=== PATIENT | female | born 1995 | race Caucasian/White ===

== ENCOUNTER → 2021-01-06 15:33 | Outpatient (CLI) | payer OTHER, SELFPAY ==
[2021-01-06 17:17] LABS: HCG,Quantitative 5608 mIU/ml (0-5.42)
== END ==
PROVIDERS: Visit Provider Obstetrics & Gynecology
DX: Z34.90 Encounter for supervision of normal pregnancy, unspecified, unspecified trimester (principal)
CPT/HCPCS: 36415; 84702

== ENCOUNTER → 2021-01-08 10:53 | Outpatient (CLI) | payer OTHER, SELFPAY ==
[2021-01-08 12:02] LABS: HCG,Quantitative 8715 mIU/ml (0-5.42)
== END ==
PROVIDERS: Visit Provider Obstetrics & Gynecology
DX: Z34.90 Encounter for supervision of normal pregnancy, unspecified, unspecified trimester (principal)
CPT/HCPCS: 36415; 84702

== ENCOUNTER → 2021-01-20 15:03 | Outpatient (CLI) | payer OTHER, SELFPAY ==
--- NOTE | 2021-01-20 15:03 | US_ITS ---
PROCEDURE: US OB <= 14 WEEKS FETUS CLINICAL INDICATION: Dates Early Ob ultrasound COMPARISON: No exams were available for comparison FINDINGS: An intrauterine gestational sac is present with a pole with a crown-rump length of 1.74cm correlating to gestational age of 8weeks 2days. heart tones are present with an FHR of 165bpm. Yolk sac is noted. 2 cm right ovarian cyst IMPRESSION: Live IUP at 8 weeks 2 days Estimated due date by Ultrasound is 08/30/2021 Dictated by: Krishna Carcamo MD 01/20/2021 16:42 Krishna Carcamo MD in [facility] 01/20/2021 16:42
== END ==
PROVIDERS: PCP Internal Medicine Adolescent Medicine; Visit Provider Obstetrics & Gynecology
DX: Z34.90 Encounter for supervision of normal pregnancy, unspecified, unspecified trimester (principal)
CPT/HCPCS: 76801

== ENCOUNTER → 2021-01-28 15:31 | Outpatient (CLI) | payer OTHER, SELFPAY ==
[2021-01-28 16:05] LABS: Basophils % 0.4 % (0.1-2.0); Eosinophils # 0.2 K/mm3 (0.0-0.4); Eosinophils % 1.9 % (0.1-12.0); Hematocrit 36.8 % (37.0-47.0); Hemoglobin 12.4 g/dL (12.2-16.2); Lymphocytes % 18.8 % (10-50); Mean Corpuscular HGB Conc 33.8 g/dL (31.8-35.4); Mean Corpuscular Hemoglobin 29.1 pg (27.0-31.2); Mean Platelet Volume 7.4 fl (7.4-10.4); Monocytes # 0.5 K/mm3 (0.1-1.0); Neutrophils # 7.9 K/mm3 (1.8-7.8); Platelet Count 278 K/mm3 (142-424); Red Blood Count 4.28 M/mm3 (4.20-5.40); Red Cell Distribution Width 13.6 % (11.5-17.5); White Blood Count 10.7 K/mm3 (4.8-10.8)
[2021-01-30 12:51] LABS: HIV Screen 4th Generation wRfx Non Reactive (Non Reactive); Hepatitis B Surface Antigen Negative (Negative); Hepatitis C Antibody <0.1 s/co ratio (0.0-0.9); Rapid Plasma Reagin Ab Titer Non Reactive (NonRea<1:1); Rubella Antibodies, IgG 2.57 index (Immune >0.99)
== END ==
PROVIDERS: Visit Provider Obstetrics & Gynecology
DX: Z34.90 Encounter for supervision of normal pregnancy, unspecified, unspecified trimester (principal)
CPT/HCPCS: 36415; 85025; 86592; 86703; 86762; 86850; 87340; 87380; G0432

== ENCOUNTER → 2021-04-22 14:47 | Outpatient (CLI) | payer BC, SELFPAY ==
--- NOTE | 2021-04-22 14:47 | US_ITS ---
PROCEDURE: US OB >= 14 WEEKS FETUS CLINICAL INDICATION: OB complete Anatomy exam COMPARISON: US US OB <= 14 WEEKS FETUS from 01/20/2021 FINDINGS: There is a single live fetus which is in cephalic presentation. The cervix is closed measuring 4 cm. The placenta posterior and grade 1 Complete survey performed and was unremarkable on the submitted images as in PACS. No discrete anomalies identified on survey imaging by technologist. Active fetus. Three-vessel cord with satisfactory umbilical cord insertion. 4- chamber heart noted. Survey of brain & ventricles Unremarkable. Face and neck survey unremarkable. Diaphragm and chest views unremarkable. Abdomen: Both kidneys noted and unremarkable. Stomach noted and satisfactory. Spine: Survey of the spine satisfactory with no anomalies identified nor imaged. Both arms and legs noted. Amniotic Fluid: Adequate. Maternal adnexa: No significant findings. Measurements: Average ultrasound age 21weeks 3days. Gestational Age 21weeks 3days Estimated due date by ultrasound age 1208/30/2021. Estimated weight 439g BPD = 21weeks 3days OFD = 21weeks HC = 20weeks 3days AC = 21weeks 4days FL = 22weeks 2days Growth Percentile= 55% Heart Rate = 150bpm Cerebellum = 19weeks 6days Humerus = 22weeks 4days HC/AC is 1.09 CI is 0.81 FL/BPD is 0.75 FL/AC is 0.23 IMPRESSION: Live IUP in cephalic presentation with an average ultrasound age 21 weeks and 3 days. No obvious anomalies. Please see above for detail Dictated by: Krishna Carcamo MD 04/22/2021 17:28 Krishna Carcamo MD in [facility] 04/22/2021 17:28
== END ==
PROVIDERS: PCP Internal Medicine Adolescent Medicine; Visit Provider Obstetrics & Gynecology
DX: Z34.90 Encounter for supervision of normal pregnancy, unspecified, unspecified trimester (principal)
CPT/HCPCS: 76805

== ENCOUNTER → 2021-05-12 09:06 | Outpatient (CLI) | payer BC, SELFPAY ==
[2021-05-12 09:36] LABS: Glucose,Fasting 91 mg/dl (74-100)
[2021-05-12 09:46] LABS: Basophils # 0.1 K/mm3 (0-0.2); Basophils % 0.5 % (0.1-2.0); Eosinophils # 0.4 K/mm3 (0.0-0.4); Hematocrit 37.7 % (37.0-47.0); Hemoglobin 12.8 g/dL (12.2-16.2); Lymphocytes # 1.9 K/mm3 (0.7-4.5); Lymphocytes % 13.3 % (10-50); Mean Corpuscular HGB Conc 34.1 g/dL (31.8-35.4); Mean Corpuscular Hemoglobin 29.1 pg (27.0-31.2); Mean Corpuscular Volume 85.4 fl (81-99); Mean Platelet Volume 7.3 fl (7.4-10.4); Monocytes # 0.5 K/mm3 (0.1-1.0); Monocytes % 3.8 % (1.7-9.3); Neutrophils # 11.2 K/mm3 (1.8-7.8); Neutrophils % 79.4 % (37.0-80.0); Platelet Count 312 K/mm3 (142-424); Red Blood Count 4.41 M/mm3 (4.20-5.40); Red Cell Distribution Width 14.6 % (11.5-17.5); White Blood Count 14.2 K/mm3 (4.8-10.8)
[2021-05-12 11:45] LABS: Glucose 1 Hour 131 mg/dL (74-100)
== END ==
PROVIDERS: Visit Provider Obstetrics & Gynecology
DX: Z34.90 Encounter for supervision of normal pregnancy, unspecified, unspecified trimester (principal)
CPT/HCPCS: 36415; 82951; 85025

== ENCOUNTER → 2021-07-10 09:57 | Outpatient (CLI) | payer BC, SELFPAY ==
--- NOTE | 2021-07-10 09:58 | US_ITS ---
PROCEDURE: US OB FOLLOW UP CLINICAL INDICATION: growth and DAYANARA FINDINGS: The following parameters are obtained: Average ultrasound age is Average 31weeks 5days Estimated due date by ultrasound is 09/06/2021. Estimated weight is 1,934g. This is 27th percentile. Cervix is closed and measures 3 cm. There is breech presentation. The placenta is right lateral and grade 2. BPD: 29weeks 5days OFD: 31 weeks 5 days HC: 30weeks 5days AC: 32weeks 3days FL: 33weeks 4days heart rate: 160bpm bpm. HC/AC: 0.99 Cephalic index: 0.72 FL/BPD: 0.88 FL/AC: 0.23 Amniotic fluid index: 13.35cm The femur length is 33weeks 4days IMPRESSION: There is a single live fetus present in breech presentation. Average ultrasound age 31 weeks 5 days with an estimated weight 1934 g which is 27th percentile. DAYANARA is normal at 13 cm. Dictated by: Krishna Carcamo MD 07/10/2021 15:50 Krishna Carcamo MD in [facility] 07/10/2021 15:50
== END ==
PROVIDERS: PCP Internal Medicine Adolescent Medicine; Visit Provider Obstetrics & Gynecology
DX: O36.5990 Maternal care for other known or suspected poor fetal growth, unspecified trimester, not applicable or unspecified (principal); Z3A.32 32 weeks gestation of pregnancy
CPT/HCPCS: 76816

== ENCOUNTER → 2021-08-04 16:56 | Outpatient (CLI) | payer BC, SELFPAY | PROVIDERS: Visit Provider Obstetrics & Gynecology | DX: Z34.90 Encounter for supervision of normal pregnancy, unspecified, unspecified trimester (principal) | CPT/HCPCS: 86403 ==

== ENCOUNTER → 2021-08-24 10:17 | Outpatient (CLI) | payer BC, SELFPAY ==
[2021-08-24 10:41] LABS: Basophils % 0.5 % (0.1-2.0); Eosinophils # 0.1 K/mm3 (0.0-0.4); Eosinophils % 0.8 % (0.1-12.0); Hematocrit 33.8 % (37.0-47.0); Hemoglobin 11.7 g/dL (12.2-16.2); Lymphocytes # 1.7 K/mm3 (0.7-4.5); Lymphocytes % 17.6 % (10-50); Mean Corpuscular HGB Conc 34.5 g/dL (31.8-35.4); Mean Corpuscular Hemoglobin 28.2 pg (27.0-31.2); Mean Corpuscular Volume 81.7 fl (81-99); Mean Platelet Volume 8.4 fl (7.4-10.4); Monocytes # 0.5 K/mm3 (0.1-1.0); Monocytes % 5.1 % (1.7-9.3); Neutrophils # 7.3 K/mm3 (1.8-7.8); Neutrophils % 76.1 % (37.0-80.0); Platelet Count 321 K/mm3 (142-424); Red Blood Count 4.14 M/mm3 (4.20-5.40); White Blood Count 9.6 K/mm3 (4.8-10.8)
[2021-08-24 11:06] LABS: Anion Gap 10.7 mEq/L (5-15); Blood Urea Nitrogen 4 mg/dl (7-17); Carbon Dioxide 23 mmol/L (22.0-30.0); Chloride 105 mmol/L (98-107); Estimated Glomerular Filt Rate 120 ml/min (>60); GFR (African American) 145 ML/MIN (>60); Glucose 81 mg/dl (74-100); Potassium 3.7 mmoL/L (3.5-5.1); Sodium 135 mmol/L (136-145)
== END ==
PROVIDERS: PCP Internal Medicine Adolescent Medicine; Visit Provider Obstetrics & Gynecology
DX: Z01.818 Encounter for other preprocedural examination (principal); Z11.52 Encounter for screening for COVID-19
CPT/HCPCS: 36415; 80048; 85025; 86850; C9803; U0003; U0005

== ENCOUNTER 2021-08-25 10:09 | Inpatient (IN) | payer BC, SELFPAY ==
--- NOTE | 2021-08-19 15:31 | SUR.PREOP ---
Instructed patient to come in on Sat or Sun for labs and COVID screening
[2021-08-25] VITALS (11 sets, daily range): BP systolic 108–177; BP diastolic 48–109; PULSE 69–105; RESP 16–20; TEMP 36.4–37; O2SAT 95–100; BMI 40.1; BMI 40.6
[2021-08-25 10:47] LABS: Microscopic, Urine URINE MICROSCOPIC (MICROSCOPIC)
[2021-08-25 10:47] LABS: Coronavirus 19, PCR Not Detected (NotDetected); Influenza A, PCR Not Detected (NotDetected); Influenza B, PCR Not Detected (NotDetected)
[2021-08-25 10:52] LABS: Appearance,Urine CLEAR (Clear); Blood, Urine Negative (Negative); Color,Urine YELLOW (Yellow); Glucose,Urine (UA) Negative (Negative); Ketones,Urine 1+ (Negative); Leukocyte Esterase,Urine 1+ (Negative); Nitrate,Urine Negative (Negative); Protein,Urine TRACE (Negative); Specific Gravity, Urine >= 1.030 (1.005-1.030)
[2021-08-25 10:57] LABS: Bilirubin,Urine 2+ (Negative)
[2021-08-25 10:59] LABS: Bacteria,Urine 1+ /lpf
--- NOTE | 2021-08-25 11:03 | US_ITS ---
PROCEDURE: US OB LIMITED POSITION CLINICAL INDICATION: breech COMPARISON: US US OB FOLLOW UP from 07/10/2021 FINDINGS: Limited images are obtained previous to shortness angle live fetus in breech presentation. IMPRESSION: Breech position of the fetus Dictated by: Krishna Carcamo MD 09/08/2021 15:59 Krishna Carcamo MD in [facility] 09/08/2021 15:59
[2021-08-25 11:16] LABS: Amphetamine/Metha Screen,Urine Negative ng/ml (<1000)
[2021-08-25 11:17] LABS: Barbiturates Screen,Urine Negative ng/ml (<200)
[2021-08-25 11:18] LABS: Benzodiazepines Screen,Urine Negative ng/ml (<200); Cannabinoid Screen,Urine Negative ng/ml (<50)
[2021-08-25 11:19] LABS: Cocaine Screen,Urine Negative ng/ml (<300); Methadone Screen,Urine Negative ng/ml (<300)
[2021-08-25 11:20] LABS: Opiate Screen,Urine Negative ng/ml (<300)
[2021-08-25 11:21] LABS: Phencyclidine Screen,Urine Negative ng/ml (<25)
--- NOTE | 2021-08-25 11:48 | HMH.HP ---
*Admission Date: 08/25/21 *Chief complaint: scheduled c section *History of present illness: 26 yo @ 39 weeks scheduled c section for breech presentation uncomplicated [facility] History I have reviewed the patient's past medical history: Yes Medical History: Denies:: Seizures *Have you ever received a pneumonia vaccine?: No *Have you received a flu vaccine this season?: No Anesthesia experience/problems:: None Other Surgeries: No: Amputation: No Fractures: No - *Social History Smoking Status: Never smoker Alcohol Intake: never Substance Use Type: denies use *Occupational Status:: employed *Travel in the last 8 weeks: None Family Hx:: No significant family history Para: 1 Review of Systems - Review of Systems Review of systems:: pertinent systems reviewed and negative unless documented below - *Genitourinary Denies abnormal vaginal bleeding Meds Home Medications Medication Instructions Recorded Confirmed Type prenat.vits,sukhdev,igy-zwqs-ezvyw 1 tab PO DAILY 01/23/21 08/25/21 History omeprazole 20 mg capsule,delayed 20 mg PO DAILY 07/07/21 08/25/21 History release Ondansetron [Zofran 4mg ODT] 4 mg PO Q4HP PRN 08/25/21 08/25/21 History Allergies Allergy/AdvReac Type Severity Reaction Status Date / Time DYE IN BENADRYL Allergy Intermediate Uncoded 08/19/21 10:03 Exam Vital signs and Labs for Last 24 Hours: Temp Pulse Resp BP Pulse Ox 98.6 F 87 16 177/108 H 97 08/25/21 14:18 08/25/21 14:18 08/25/21 14:23 08/25/21 14:18 08/25/21 10:30 Laboratory Results - last 24 hr 08/25/21 09:24: Urine Opiates Screen Negative, Urine Methadone Screen Negative, Ur Barbituates Screen Negative, Ur Phencyclidine Scrn Negative, Ur Amphetamines Screen Negative, U Benzodiazepines Scrn Negative, Urine Cocaine Screen Negative, U Marijuana (THC) Screen Negative 08/25/21 10:24: Urine Color Yellow, Urine Appearance Clear, Urine pH 6.0, Ur Specific [place] >= 1.030, Urine Protein Trace, Urine Glucose (UA) Negative, Urine Ketones 1+, Urine Blood Negative, Urine Nitrate Negative, Urine Bilirubin 2+ A, Urine Urobilinogen 1.0, Ur Leukocyte Esterase 1+ A, Urine RBC 5-10, Urine WBC 5-10, Ur Squamous Epith Cells 3-5, Urine Bacteria 1+ 08/25/21 10:34: SARS-CoV-2 (PCR) Not detected, Influenza A Untype (PCR) Not detected, Influenza Type B (PCR) Not detected I & O for Last 24 hours: Intake & Output 08/23/21 08/24/21 08/25/21 08/26/21 11:59 11:59 11:59 11:59 Intake Total 1000 / 1000 Balance 1000 / 1000 Weight 237 lb - Constitutional no acute distress - *Routine HEENT Exam Head: Present: normocephalic Eye: Absent: conjunctival icterus ENT: Present: mucous membranes moist - *Routine Neck Exam Present: supple. Absent: lymphadenopathy - *Routine Respiratory Exam Present: CTA bilaterally - *Routine Cardiovascular Exam Present: RRR - *Routine Abdominal Exam Present: soft, normoactive bowel sounds. Absent: tenderness - *Routine Rectal Exam Rectal:: deferred - *Routine Genitalia Exam Genitalia:: normal female - *Routine Extremities Exam Present: edema - *Routine Skin Exam Present: warm. Absent: rash - *Routine Neurological Exam Present: alert, oriented X3 Assessment and Plan (1) 39 weeks gestation of Status: Acute Category: Medical Code(s): Z3A.39 - 39 weeks gestation of (2) Breech presentation Status: Acute Category: Medical Code(s): O32.1XX0 - Maternal care for breech presentation, not applicable or unspecified - Assessment and plan all Dx Assessment and Plan for all problems:: delivery via c section proceed to OR
--- NOTE | 2021-08-25 13:45 | P.CONPHA_ITS ---
[facility] Pharmacy VTE Monitoring - Patient Demographics Admission date: 08/25/21 Report Date: 08/25/21 Time: 13:45 Allergies/Adverse Reactions: Patient Allergies DYE IN BENADRYL Allergy (Intermediate, Uncoded 08/19/21 10:03) Height: 1.63 m Weight: 107.501 kg - Prophylaxis VTE Prophylaxis Ordered?: Yes Types of VTE Prophylaxis: IPCS Thigh High Location of Applied Device: Bilateral Lower Extremeties
--- NOTE | 2021-08-25 14:17 | P.PN_ITS ---
[facility] Anesthesia Record Part I Intake, IV Amount: 1,000 Estimated blood loss (mL): 850 Urine output (mL): 0 Blood Pressure: 177/108 SaO2: 95 Pulse Rate: 87 Respiratory Rate: 18 Temperature: 98.6 F Patient is:: Awake Stable to PACU at:: 14:13
--- NOTE | 2021-08-25 14:17 | HMH.ANESCL ---
[facility] Anesthesia Checklist - Patient Identification Patient Identification: Arm Band - Structural Data Admitted From: Inpatient Planned Operative Procedure/s: C/S Consent for Planned Operative Procedure(s) Verified: Yes - NPO Status Verified Time NPO: 00:00 - Airway Assessment C-Spine Mobility Assessed: Yes TMJ Mobility Assessed: Yes Dentition: Good Dentition - Neurological Assessment Level of Consciousness: Awake Hx Seizures: No Numbness or tingling in extremities: No - Anesthesia Plan Anesthesia Risk discussed: Yes Anesthesia Plan: Verified ASA Class: II Anesthesia Type: Epidural [facility] History I have reviewed the patient's past medical history: Yes *Have you ever received a pneumonia vaccine?: No *Have you received a flu vaccine this season?: No Anesthesia experience/problems:: None Other Surgeries: No: Amputation: No Fractures: No - *Social History Smoking Status: Never smoker Alcohol Intake: never Substance Use Type: denies use *Occupational Status:: employed *Travel in the last 8 weeks: None Family Hx:: No significant family history Para: 1
--- NOTE | 2021-08-25 14:53 | SUR.OPER ---
1318- viable infant female born at this time
--- NOTE | 2021-08-25 15:06 | SUR.PHASEI ---
Dr. Bradford notified of OR QBL is greater that 1000mL. QBL protocol initiated.
--- NOTE | 2021-08-25 15:16 | HMH.OPNOTE ---
Date of procedure: 08/25/21 Pre-op Diagnosis:: 1. 39 weeks gestation 2. Breech presentation Post-op Diagnosis:: same Procedure performed:: primary LTCS Surgeon:: Julia Bradford MD CERTIFIED PROFESSIONAL ERGONOMIST:: Dameon Barrera Anesthesia: spinal Estimated blood loss (mL): 700 Operative findings:: female breech presentation apgars 8 & 8 Operative note:: The patient was taken to the OR and spinal was administered without difficulty. She was prepped and draped in normal sterile fashion. A pfannenstiel skin incision was made with the scalpel and carried down to the fascia. The fascia was incised in the midline and sharply dissected off the rectus muscles. The muscles were in the midline and the peritoneum was entered sharply and extended bluntly. The Yemi-O self retaining retractor was placed in the abdomen and a bladder flap was created. The uterus was incised in the lower uterine segment in a transverse fashion and extended bluntly. Amniotomy was performed and clear fluid noted. The infant was in emeli breech presentation. The breech was delivered in controlled fashion, without complication. Legs and arms were rotated medially and the head was delivered with gentle downward traction. Meconium passage was noted at the time of delivery but amniotic fluid was not stained. The was vigorous at and handed to awaiting oil spreader operator for evaluation after cord clamped and cut. Cord blood was collected and a cord segment was preserved. The placenta was manually extracted and noted to be intact. The uterus was repaired with 0-vicryl in a running/locked fashion. The peritoneum was closed with 2-0 vicryl in a running fashion. The fascia was closed with #1 vicryl in a running fashion. The subcutaneous fat was closed with 2-0 vicryl in an interrupted fashion. The skin was closed with 2-0 stratafix in subcuticular fashion. The patient tolerated the procedure well. Sponge, lap, needle and instrument counts were correct x 2. She was taken to PACU awake and in stable condition. Condition: stable Disposition: PACU Specimens:: placenta Complications:: none
[2021-08-25 15:58] LABS: Microscopic,Cath URINE MICROSCOPIC (MICROSCOPIC)
[2021-08-25 16:25] LABS: Appearance,Urine/Cath CLEAR (Clear); Bilirubin,Cath Negative (Negative); Blood, Urine/Cath Negative (Negative); Color,Urine/Cath YELLOW (Yellow); Glucose,Urine/Cath (UA) Negative (Negative); Ketones,Urine/Cath 2+ (Negative); Leukocyte Esterase,Cath Negative (Negative); Nitrate,Cath Negative (Negative); Protein,Urine/Cath Negative (Negative); Urobilinogen,Cath 0.2 EU/dl (0.2)
[2021-08-25 16:42] LABS: Bacteria,Urine/Cath TRACE /lpf; WBC,Urine/Cath Occasional #/hpf (0-3)
[2021-08-26 08:30] VITALS: BP 114/75; PULSE 82; RESP 20; TEMP 36.8; O2SAT 99
--- NOTE | 2021-08-26 15:57 | P.PN_ITS ---
Internal Medicine - PN: Subj *Date: 08/26/21 *Time: 12:57 Interval history: POD #1 primary cs for breech presentation tolerating regular diet ambulating and voiding without difficulty asymptomatic with anemia no complaints Exam Vital signs and Labs for Last 24 Hours: Temp Pulse Resp BP Pulse Ox 98.2 F 82 20 114/75 99 08/26/21 08:30 08/26/21 08:30 08/26/21 08:30 08/26/21 08:30 08/26/21 08:30 Laboratory Results - last 24 hr 08/25/21 13:00: Urine Color Yellow, Urine Appearance Clear, Urine pH 6.0, Ur Specific [place] 1.010, Urine Protein Negative, Urine Glucose (UA) Negative, Urine Ketones 2+, Urine Blood Negative, Urine Nitrate Negative, Urine Bilirubin Negative, Urine Urobilinogen 0.2, Ur Leukocyte Esterase Negative, Urine RBC None, Urine WBC Occasional, Ur Squamous Epith Cells None, Urine Bacteria Trace 08/25/21 15:55: Blood Type O Positive, Antibody Screen Negative, Crossmatch (AHG) See Detail 08/26/21 06:30: Hgb 9.0 L, Hct 27.0 L I & O for Last 24 hours: Intake & Output 08/24/21 08/25/21 08/26/21 08/27/21 11:59 11:59 11:59 11:59 Intake Total 1000 / 1000 Balance 1000 / 1000 Weight 237 lb Microbiology Reports for the Last 24 Hours: Microbiology 08/25/21 10:24 Urine,Clean Catch Urine Culture - Preliminary Narrative: CONSTITUTIONAL: no acute distress HEENT: mucous membranes moist PULMONARY: breathing unlabored without audible wheezes CV: no tachycardia or visible JVD; normal LE peripheral pulses ABD: soft, ND; appropriately tender but no rebound/guarding : fundus firm below umbilicus SKIN: incision well approximated with no drainage, erythema or induration EXT: 1+ edema LEs NEURO: alert/oriented, no altered mental status PSYCH: appropriate mood and demeanor Assessment and Plan (1) 39 weeks gestation of Status: Acute Category: Medical Code(s): Z3A.39 - 39 weeks gestation of (2) Breech presentation Status: Acute Category: Medical Code(s): O32.1XX0 - Maternal care for breech presentation, not applicable or unspecified (3) Status post Status: Acute Category: Surgical Code(s): Z98.891 - History of uterine scar from previous surgery - Assessment and plan all Dx Assessment and Plan for all problems:: routine postop care pnv with feso4 anticipate discharge home tomorrow
[2021-08-26 16:00] VITALS: BP 117/73; PULSE 88; RESP 18; TEMP 36.8; O2SAT 99
[2021-08-26 20:27] VITALS: BP 123/76; PULSE 87; RESP 17; TEMP 36.9; O2SAT 98
[2021-08-27 03:59] VITALS: BP 127/77; PULSE 93; RESP 16; TEMP 36.7; O2SAT 98
--- NOTE | 2021-08-27 15:06 | HMH.DCSUM ---
General - General Admission date:: 08/25/21 Discharge date: 08/27/21 HPI HPI: 26 yo @ 39 weeks scheduled c section for breech presentation uncomplicated Hospital Course Hospital Course: postop course uneventful discharged home on POD#2 in stable condition she is tolerating a regular diet, ambulating and voiding without difficulty pain control sufficient lochia appropriate Rhogam Administration: Not Indicated Objective Vital signs: Temp Pulse Resp BP Pulse Ox 98.1 F 93 H 16 127/77 98 08/27/21 03:59 08/27/21 03:59 08/27/21 03:59 08/27/21 03:59 08/27/21 03:59 Narrative: CONSTITUTIONAL: no acute distress HEENT: mucous membranes moist PULMONARY: breathing unlabored without audible wheezes CV: no tachycardia or visible JVD; normal LE peripheral pulses ABD: soft, ND; appropriately tender but no rebound/guarding : fundus firm below umbilicus SKIN: incision well approximated with no drainage, erythema or induration EXT: 1+ edema LEs NEURO: alert/oriented, no altered mental status PSYCH: appropriate mood and demeanor Results Labs on day of discharge: Preliminary micro results at discharge 08/25/21 10:24 Urine Culture - Preliminary Urine,Clean Catch DS: Diagnosis - Discharge Diagnosis (1) 39 weeks gestation of Status: Acute (2) Breech presentation Status: Acute (3) Status post Status: Acute Discharge Plan - Patient Discharge Instructions ACTIVITY: Continue current activity DIET: regular diet Additional Instructions: DRINK PLENTY OF FLUIDS NOTHING IN THE VAGINA FOR 6 WEEKS NO TUB BATHS UNTIL DIRECTED NO DRIVING OR HEAVY LIFTING Patient Instructions: Depression, Hemorrhage, DI for , DI for Pre-eclampsia, [facility] Post Discharge Instructions, Preventing the Spread of Coronavirus Discharge Instructions - Follow up Plan Follow up with: Julia Bradford MD [Staff Physician] - Disposition: Home, Self-Care Condition at discharge:: Stable Home Medications: Home Medications Medication Instructions Recorded Confirmed Type prenat.vits,sukhdev,qmf-xigf-snkiu 1 tab PO DAILY 01/23/21 08/25/21 History omeprazole 20 mg capsule,delayed 20 mg PO DAILY 07/07/21 08/25/21 History release Ondansetron [Zofran 4mg ODT] 4 mg PO Q4HP PRN 08/25/21 08/25/21 History Ibuprofen [Motrin 400mg 800 mg PO Q6HP PRN #40 tab 08/27/21 Rx tablet] Oxycodone HCl [OxyIR 5mg tablet] 5 mg PO Q6HP PRN #24 tablet 08/27/21 Rx Prescriptions/Medication Reconciliation: New Oxycodone HCl [OxyIR 5mg tablet] 5 mg PO Q6HP PRN #24 tablet PRN Reason: Moderate Pain Ibuprofen [Motrin 400mg tablet] 800 mg PO Q6HP PRN #40 tab PRN Reason: Mild To Moderate Pain Continued prenat.vits,sukhdev,eju-mpoo-sbvow 1 tab PO DAILY omeprazole 20 mg capsule,delayed release 20 mg PO DAILY Ondansetron [Zofran 4mg ODT] 4 mg PO Q4HP PRN PRN Reason: nausea and vomiting - Problem Reconciliation Problems Reviewed?: Yes
== END 2021-08-27 16:18 | disposition home or self-care (01) | DRG 788 ==
PROVIDERS: Admitting Provider Obstetrics & Gynecology; PCP Internal Medicine Adolescent Medicine; Visit Provider Obstetrics & Gynecology
PROC: (CPT 59514; principal; 2021-08-25 12:15)
DX: O65.5 Obstructed labor due to abnormality of maternal pelvic organs (principal); O34.211 Maternal care for low transverse scar from previous cesarean delivery; Z3A.39 39 weeks gestation of pregnancy; Z37.0 Single live birth; O64.1XX0 Obstructed labor due to breech presentation, not applicable or unspecified
CPT/HCPCS: 59514; 36415; 59025; 76815; 80305; 81001; 85014; 85018; 86850; 87086; 94761; C9803; G0283; J2405; U0003; U0005

== ENCOUNTER → 2022-10-14 09:31 | Outpatient (CLI) | payer BC, SELFPAY | LOC: LAB.DROPOF 10-15 05:58 | PROVIDERS: PCP Nurse Practitioner Family; Visit Provider Nurse Practitioner Family | DX: N39.0 Urinary tract infection, site not specified (principal); B96.29 Other Escherichia coli [E. coli] as the cause of diseases classified elsewhere | CPT/HCPCS: 87086; 87088; 87186 ==

== ENCOUNTER 2024-05-17 15:59 | Outpatient (CLI) | payer BC, SELFPAY ==
--- NOTE | 2024-05-17 16:03 | XR_ITS ---
PROCEDURE INFORMATION: Exam: XR Thoracic Spine Exam date and time: 05/17/2024 4:14 PM Age: 28 years old Clinical indication: Pain in thoracic spine and other: Low back pain; Additional info: Acute right sided low back pain with right sided sciatica TECHNIQUE: Imaging protocol: Radiologic exam of the thoracic spine. Views: 3 views. COMPARISON: CR XR THORACIC SPINE 3V 05/17/2024 4:14 PM FINDINGS: Bones/joints: Mild levoscoliosis is seen involving the upper thoracic spine. Soft tissues: Unremarkable. IMPRESSION: No acute findings. Mild levoscoliosis involving the upper thoracic spine.
--- NOTE | 2024-05-17 16:03 | XR_ITS ---
PROCEDURE INFORMATION: Exam: XR Lumbosacral Spine Exam date and time: 05/17/2024 4:14 PM Age: 28 years old Clinical indication: Low back pain and sciatica; Right; Additional info: Acute right sided low back pain with right sided sciatica TECHNIQUE: Imaging protocol: Radiologic exam of the lumbosacral spine. Views: 4 or 5 views. COMPARISON: CR XR THORACIC SPINE 3V 05/17/2024 4:14 PM FINDINGS: Bones/joints: Normal. No acute fracture. Normal alignment. Soft tissues: Unremarkable. IMPRESSION: No acute findings.
== END 2024-05-17 23:59 | disposition home or self-care (01) ==
LOC: RAD 16:00
PROVIDERS: PCP Physician Assistant; Visit Provider Physician Assistant
DX: M54.41 Lumbago with sciatica, right side (principal)
CPT/HCPCS: 72072; 72110

== ENCOUNTER 2024-05-18 08:03 | Outpatient (CLI) | payer BC, SELFPAY ==
[2024-05-18 08:36] LABS: Basophils % 0.3 % (0.1-2.0); Eosinophils % 0.4 % (0.1-12.0); Hematocrit 44.9 % (37.0-47.0); Hemoglobin 14.7 g/dL (12.2-16.2); Lymphocytes # 1.8 K/mm3 (0.7-4.5); Lymphocytes % 17.8 % (10-50); Mean Corpuscular HGB Conc 32.7 g/dL (31.8-35.4); Mean Corpuscular Hemoglobin 28.9 pg (27.0-31.2); Mean Corpuscular Volume 88.3 fl (81-99); Mean Platelet Volume 7.7 fl (7.4-10.4); Monocytes # 0.4 K/mm3 (0.1-1.0); Monocytes % 4.2 % (1.7-9.3); Neutrophils # 7.8 K/mm3 (1.8-7.8); Neutrophils % 77.2 % (37.0-80.0); Platelet Count 317 K/mm3 (142-424); Red Blood Count 5.09 M/mm3 (4.20-5.40); Red Cell Distribution Width 14.2 % (11.5-17.5); White Blood Count 10.1 K/mm3 (4.8-10.8)
[2024-05-18 09:00] LABS: Alanine Aminotransferase 23 U/L (12-78); Albumin Level 4.2 g/dl (3.5-5.0); Albumin/Globulin Ratio 1.3 (1.1-1.8); Alkaline Phosphatase 93 U/L (38-126); Aspartate Amino Transferase 22 U/L (14-36); Bilirubin,Total 0.5 mg/dl (0.2-1.3); Blood Urea Nitrogen 10 mg/dl (7-17); Calcium 9.7 mg/dl (8.4-10.2); Carbon Dioxide 23 mmol/L (22.0-30.0); Chloride 110 mmol/L (98-107); Chol/HDL Ratio 2.6 (1-3.5); Cholesterol 206 mg/dl (140-200); Estimated Glomerular Filt Rate 99 ml/min (>60); GFR (African American) 120 ML/MIN (>60); Globulin 3.3 g/dL (1.3-3.2); Glucose 105 mg/dl (74-100); HDL Cholesterol 78 mg/dl (40-60); Sodium 142 mmol/L (136-145); Total Protein,Serum 7.5 g/dl (6.3-8.2); Triglycerides 84 mg/dl (30-150); VLDL Cholesterol 17 mg/dL (0-40)
[2024-05-18 09:11] LABS: Direct LDL Cholesterol 109.81 mg/dL (100-129)
[2024-05-18 09:18] LABS: 25-OH Vitamin D, Total 31.5 ng/mL (30-100)
[2024-05-18 09:20] LABS: Free T4 (Free Thyroxine) 1.23 ng/dl (0.78-2.19); Hemoglobin A1C 5.2 % (4.0-6.0)
[2024-05-18 09:52] LABS: Vitamin B12 383 pg/mL (239-931)
== END 2024-05-18 23:59 | disposition home or self-care (01) ==
LOC: LAB 08:04
PROVIDERS: PCP Internal Medicine Adolescent Medicine; Visit Provider Physician Assistant
DX: M54.41 Lumbago with sciatica, right side (principal); G62.9 Polyneuropathy, unspecified; R53.83 Other fatigue; M79.10 Myalgia, unspecified site; Z82.49 Family history of ischemic heart disease and other diseases of the circulatory system; Z83.3 Family history of diabetes mellitus; Z83.438 Family history of other disorder of lipoprotein metabolism and other lipidemia
CPT/HCPCS: 36415; 80050; 80053; 80061; 82306; 82607; 83036; 83735; 84439; 84443; 85025